=== PATIENT | female | born 2000 | race Hispanic/Latino ===

== ENCOUNTER 2021-09-30 11:31 | Emergency (ER) | payer MEDICAID ==
[2021-09-30 11:47] VITALS: BP 125/70
--- NOTE | 2021-09-30 11:56 | Emergency Department Report ---
ED Eye Problem HPI - General Chief complaint: Eye Problems Stated complaint: LEFT EYE SWOLLEN Time Seen by Provider: 09/30/21 11:50 Source: patient Mode of arrival: Ambulatory Limitations: No Limitations - History of Present Illness Initial comments: Patient is a 20-year-old female that comes to the emergency room with left eye swelling. She has a stye underneath her upper eyelid, to the lateral side of her head. She does not wear contact lenses. She has had no trauma. No recent URI. chief complaint: eye redness -: Gradual, days(s) If Injury: none Severity: mild Consistency: constant Associated Symptoms: none Treatments Prior to Arrival: none - Related Data Previous Rx's Medication Instructions Recorded Last Taken Type Erythromycin [Erythromycin Ophth 0.5 inch OS Q4H #5 day 09/30/21 Unknown Rx Oint] Allergies Allergy/AdvReac Type Severity Reaction Status Date / Time amoxicillin Allergy Hives Verified 09/30/21 11:47 ED Review of Systems ROS: Stated complaint: LEFT EYE SWOLLEN Other details as noted in HPI Comment: All other systems reviewed and negative ED Past Medical Hx - Past Medical History Previous Medical History?: No - Surgical History Past Surgical History?: No - Family History Family history: no significant - Social History Smoking Status: Never Smoker Substance Use Type: None - Medications Home Medications: Home Medications Medication Instructions Recorded Confirmed Last Taken Type Erythromycin [Erythromycin Ophth 0.5 inch OS Q4H #5 day 09/30/21 Unknown Rx Oint] ED Physical Exam - General Limitations: No Limitations General appearance: alert, in no apparent distress - Head Head exam: Present: atraumatic, normocephalic - Eye Eye exam: Present: normal appearance Pupils: Present: other (Stye noted under the left upper eyelid, lateral border) - ENT ENT exam: Present: mucous membranes moist - Neck Neck exam: Present: normal inspection - Respiratory Respiratory exam: Present: normal lung sounds bilaterally. Absent: respiratory distress - Cardiovascular Cardiovascular Exam: Present: regular rate, normal rhythm. Absent: systolic murmur, diastolic murmur, rubs, gallop - GI/Abdominal GI/Abdominal exam: Present: soft, normal bowel sounds - Extremities Exam Extremities exam: Present: normal inspection - Back Exam Back exam: Present: normal inspection - Neurological Exam Neurological exam: Present: alert, oriented X3 - Psychiatric Psychiatric exam: Present: normal affect, normal mood - Skin Skin exam: Present: warm, dry, intact, normal color. Absent: rash ED Course Vital Signs 09/30/21 11:45 Temperature 97.9 F Pulse Rate 79 Respiratory 14 Rate Blood Pressure 125/70 O2 Sat by Pulse 97 Oximetry ED Medical Decision Making - Medical Decision Making Vital Signs 09/30/21 11:45 Temperature 97.9 F Pulse Rate 79 Respiratory 14 Rate Blood Pressure 125/70 O2 Sat by Pulse 97 Oximetry Patient does not wear contacts. She has no trauma. No recent URI. Patient's vision is unchanged. Her globe is intact her EOMs are intact. Her pupils are equal and reactive. Patient denies any matting when she woke up. There is no tearing. She denies fever or chills. No associated respiratory symptoms Patient has a stye on exam. She has been educated about stye care and the fact that they can being be problematic to get rid of. Patient being discharged home with discharge plan of care including diet, activity, medications and follow-up. She verbalizes understanding of plan of care - Differential Diagnosis Conjunctivitis versus stye Critical care attestation.: If time is entered above; I have spent that time in minutes in the direct care of this critically ill patient, excluding procedure time. ED Disposition Clinical Impression: Stye Qualifiers: Laterality: left Eyelid: upper Qualified Code(s): H00.014 - Hordeolum externum left upper eyelid Disposition: 01 HOME / SELF CARE / HOMELESS Is pt being admited?: No Does the pt Need Aspirin: No Condition: Stable Instructions: Stye Additional Instructions: WARM COMPRESSES TO EYE MED ORDERED TODAY FOLLOW UP WITH EYE DOCTOR NEXT WEEK IF PERSISTS Prescriptions: Erythromycin [Erythromycin Ophth Oint] 0.5 inch OS Q4H #5 day Referrals: DEBORAH GLASGOW MD [Staff Physician] - 3-5 Days Forms: Work/School Release Form(ED) Time of Disposition: 11:52 Print Language: PERUVIAN
== END 2021-09-30 12:20 | disposition home or self-care (01) ==
LOC: ED 11:31
DX: H00.014 Hordeolum externum left upper eyelid (principal); Z88.0 Allergy status to penicillin
CPT/HCPCS: 99282